=== PATIENT | male | born 1975 | race American Indian/Alaskan Native ===

== ENCOUNTER 2020-02-15 20:40 | Emergency (ER) | payer SELFPAY ==
[2020-02-15 22:57] VITALS: BP 136/82
--- NOTE | 2020-02-16 01:44 | Emergency Department Report ---
ED General Adult HPI - General Chief complaint: Upper Respiratory Infection Stated complaint: SICK PUI?: No Time Seen by Provider: 02/16/20 01:32 Source: patient Mode of arrival: Ambulatory Limitations: No Limitations - History of Present Illness Initial comments: 34-year-old F [place] male no sniffing past medical history presents emerged part complaining of a 3-day history of coughing with scant mucus production chest congestion mild diarrhea 2 days agoscratchy throat recumbent cough symptoms as well. Ports reports no known sick contacts reports no no constipation no rashes no palpitation no hemoptysis no hematemesis no hematochezia at this have some vague muscle aches. -: Gradual Quality: dull Consistency: constant Improves with: none Worsens with: none Associated Symptoms: cough, fever/chills, malaise. denies: confusion, chest pain, loss of appetite, rash, seizure, weakness Treatments Prior to Arrival: none - Related Data Previous Rx's Medication Instructions Recorded Last Taken Type Penicillin Vk [Veetids TAB] 500 mg PO BID #20 tablet 07/21/14 Unknown Rx predniSONE [Deltasone] 40 mg PO QDAY #10 tab 07/21/14 Unknown Rx traMADoL [Ultram] 50 mg PO Q6HR PRN #14 tablet 07/21/14 Unknown Rx Benzonatate [Tessalon Perles] 100 mg PO Q8HR #20 capsule 02/16/20 Unknown Rx predniSONE [Deltasone] 20 mg PO QDAY #5 tab 02/16/20 Unknown Rx Allergies Allergy/AdvReac Type Severity Reaction Status Date / Time buspirone Allergy Angioedema Verified 07/20/14 20:58 divalproex sodium Allergy Unknown Verified 07/20/14 20:58 [From Depakote] venlafaxine HCl Allergy Anaphylaxis Verified 07/20/14 20:58 [From Effexor] ED Review of Systems ROS: Stated complaint: SICK Other details as noted in HPI Comment: All other systems reviewed and negative ED Past Medical Hx - Past Medical History Previous Medical History?: Yes Hx Psychiatric Treatment: Yes (anxiety/panic disorder) - Surgical History Past Surgical History?: Yes Additional Surgical History: hernia repair - Social History Smoking Status: Never Smoker Substance Use Type: None - Medications Home Medications: Home Medications Medication Instructions Recorded Confirmed Last Taken Type Penicillin Vk [Veetids TAB] 500 mg PO BID #20 tablet 07/21/14 Unknown Rx predniSONE [Deltasone] 40 mg PO QDAY #10 tab 07/21/14 Unknown Rx traMADoL [Ultram] 50 mg PO Q6HR PRN #14 tablet 07/21/14 Unknown Rx Benzonatate [Tessalon Perles] 100 mg PO Q8HR #20 capsule 02/16/20 Unknown Rx predniSONE [Deltasone] 20 mg PO QDAY #5 tab 02/16/20 Unknown Rx ED Physical Exam - General Limitations: No Limitations General appearance: alert, in no apparent distress - Head Head exam: Present: atraumatic, normocephalic - Eye Eye exam: Present: normal appearance, PERRL, EOMI Pupils: Present: normal accommodation - ENT ENT exam: Present: normal exam, normal orophraynx, mucous membranes moist, TM's normal bilaterally - Neck Neck exam: Present: normal inspection, tenderness, full ROM - Respiratory Respiratory exam: Present: normal lung sounds bilaterally. Absent: respiratory distress - Cardiovascular Cardiovascular Exam: Present: regular rate, normal rhythm. Absent: systolic murmur, diastolic murmur, rubs, gallop - GI/Abdominal GI/Abdominal exam: Present: soft, normal bowel sounds - Rectal Rectal exam: Present: deferred - Extremities Exam Extremities exam: Present: normal inspection - Back Exam Back exam: Present: normal inspection - Neurological Exam Neurological exam: Present: alert, oriented X3 - Psychiatric Psychiatric exam: Present: normal affect, normal mood - Skin Skin exam: Present: warm, dry, intact, normal color. Absent: rash ED Course Vital Signs 02/15/20 22:40 Temperature 98.1 F Pulse Rate 84 Respiratory 16 Rate Blood Pressure 136/82 O2 Sat by Pulse 97 Oximetry ED Medical Decision Making - Radiology Data Radiology results: report reviewed [facility] [address] [place] [address] XRay Report Signed Patient: STEPHEN CHANG MR# : [id number] : 1975 Acct:[id number] Age/Sex: 44 / M ADM Date: 02/15/20 Loc: ED Attending Dr: Ordering Physician: ROSSY TAVAREZ Date of Service: 02/16/20 Procedure(s): XR chest routine 2V Accession Number(s): [id number] cc: ROSSY TAVAREZ Fluoro Time In Minutes: . CHEST 2 VIEWS INDICATION: cough. COMPARISON: 03/10/2007 FINDINGS: SUPPORT DEVICES: None. HEART: Within normal limits. LUNGS/PLEURA: No acute air space or interstitial disease. No pneumothorax. ADDITIONAL FINDINGS: None. IMPRESSION: 1. No acute findings. Signer Name: Hieu Vargas MD Signed: 02/16/2020 2:30 AM Workstation Name: [id number] Transcribed By: VALERIE Dictated By: Hieu Vargas MD Electronically Authenticated By: Hieu Vargas MD Signed Date/Time: 02/16/20229 DD/ 9 TD/TT: - Medical Decision Making This 44-year-old -[place] male patient presents with symptoms suspicious for likely viral upper respiratory tract infection. Differential includes bacterial pneumonia, sinusitis, allergic rhinitis, coronavirus. Do not suspect underlying Cardiopulmonary process. I considered but think unlikely dangerous cause of this patient symptoms to include acute coronary syndrome, CHF or COPD exacerbations, pneumonia, pneumothorax. Patient is nontoxic appearing and not in need of emergent medical intervention. This patient presents with lower respiratory symptoms concerning for viral syndrome including flu. Patient does not meet criteria for COVID-19. Doubt pneumonia, sepsis or other serious bacterial infection or acute emergent condition. Is otherwise well- appearing with acceptable vitals and reassuring physical examination and is safe to be discharged home. Patient lacks serious medical comorbidities that would require admission. Patient is nontoxic and although symptomatic otherwise safe to go home. Will provide strict return precautions and instructions on self isolation/quarantine and anticipatory guidance. Plan: Reassurance, reassessment, [id number] medications, discharge with PCP follow-up Critical care attestation.: If time is entered above; I have spent that time in minutes in the direct care of this critically ill patient, excluding procedure time. ED Disposition Clinical Impression: Cough, URI (upper respiratory infection) Disposition: -01 TO HOME OR SELFCARE Is pt being admited?: No Does the pt Need Aspirin: No Condition: Stable Instructions: Viral Respiratory Infection, Cough, Adult, Upper Respiratory Infection, Adult, Cool Mist Vaporizer Prescriptions: predniSONE [Deltasone] 20 mg PO QDAY #5 tab Benzonatate [Tessalon Perles] 100 mg PO Q8HR #20 capsule Referrals: PRIMARY CARE, [Primary Care Provider] - 3-[address] [facility] [Provider Group] - 3-5 Days
--- NOTE | 2020-02-16 02:35 | XRay Report ---
. CHEST 2 VIEWS INDICATION: cough. COMPARISON: 03/10/2007 FINDINGS: SUPPORT DEVICES: None. HEART: Within normal limits. LUNGS/PLEURA: No acute air space or interstitial disease. No pneumothorax. ADDITIONAL FINDINGS: None. IMPRESSION: 1. No acute findings. Signer Name: Hieu Vargas MD Signed: 02/16/2020 2:30 AM Workstation Name: [id number]
== END 2020-02-16 03:39 | disposition home or self-care (01) ==
LOC: ED 20:40
DX: R07.89 Other chest pain (principal); J06.9 Acute upper respiratory infection, unspecified; F41.9 Anxiety disorder, unspecified; Z98.890 Other specified postprocedural states; Z79.899 Other long term (current) drug therapy; Z88.8 Allergy status to other drugs, medicaments and biological substances
CPT/HCPCS: 71046; 99283